=== PATIENT | female | born 1985 | race Two or more races ===

== ENCOUNTER 2020-01-01 02:26 | Emergency (ER) | payer BC ==
[~2020-01-01] VITALS: Ht 167.6 cm; Wt 70.2 kg
--- NOTE | 2020-01-01 02:41 | NUR ---
Pt presents to room reporting low abdominal pain with intermittent vaginal bleeding for 3 days. Pt reports nausea with the pain as well as vomiting once yesterday. Pt describes the pain radiating to her LLQ. Pt denies urinary symptoms. Pt reports a +UPT 3 weeks ago, .
[2020-01-01 03:20] LABS: BASOPHILS # (AUTO) 0.02 x10^3/uL (0-0.1); BASOPHILS % (AUTO) 0 % (0-1); EOSINOPHILS # (AUTO) 0.25 x10^3/uL (0-0.4); EOSINOPHILS % (AUTO) 4 % (1-7); LYMPHOCYTES # (AUTO) 1.43 x10^3/uL (1-3.4); LYMPHOCYTES % (AUTO) 23 % (22-44); MD NO; MEAN CORPUSCULAR HEMOGLOBIN 24.6 pg (27.0-34.8); MEAN CORPUSCULAR HGB CONC 32.7 g/dL (32.4-35.8); MEAN CORPUSCULAR VOLUME 75.1 fL (80-100); MEAN PLATELET VOLUME 7.1 fL (7.4-10.4); MONOCYTES # (AUTO) 0.49 x10^3/uL (0.2-0.8); MONOCYTES % (AUTO) 8 % (2-9); NEUTROPHILS # (AUTO) 3.94 x10^3/uL (1.8-6.8); NEUTROPHILS % (AUTO) 64 % (42-75); PLATELET COUNT 363 x10^3/uL (130-400); RED BLOOD COUNT 4.18 x10^6/uL (3.82-5.3); RED CELL DISTRIBUTION WIDTH 18.3 % (9.6-15.2)
[2020-01-01 03:33] LABS: ALANINE AMINOTRANSFERASE 29 U/L (12-78); ALBUMIN 3.4 g/dL (3.4-5.0); ANION GAP 5 mmol/L (5-15); CALCIUM 8.1 mg/dL (8.5-10.1); CHLORIDE 111 mmol/L (98-107); CREATININE 0.65 mg/dL (0.55-1.02)
[2020-01-01 03:51] LABS: ALKALINE PHOSPHATASE 98 U/L (45-117); BILIRUBIN,TOTAL 0.4 mg/dL (0.2-1.0); TOTAL PROTEIN 7.1 g/dL (6.4-8.2)
[2020-01-01 05:47] VITALS: BP 109/58
== END 2020-01-01 05:50 | disposition home or self-care (01) ==
LOC: ED 03:39
DX: O20.0 Threatened abortion (principal)
CPT/HCPCS: 36415; 76801; 80053; 84702; 85025; 86901; 99284

== ENCOUNTER 2020-01-01 19:06 | Emergency (ER) | payer BC ==
[~2020-01-01] VITALS: Ht 167.6 cm; Wt 69.7 kg
[2020-01-01 19:48] LABS: BASOPHILS # (AUTO) 0.05 x10^3/uL (0-0.1); BASOPHILS % (AUTO) 1 % (0-1); EOSINOPHILS # (AUTO) 0.24 x10^3/uL (0-0.4); EOSINOPHILS % (AUTO) 3 % (1-7); LYMPHOCYTES # (AUTO) 1.59 x10^3/uL (1-3.4); LYMPHOCYTES % (AUTO) 17 % (22-44); MD NO; MEAN CORPUSCULAR HEMOGLOBIN 24.3 pg (27.0-34.8); MEAN CORPUSCULAR HGB CONC 32.3 g/dL (32.4-35.8); MEAN CORPUSCULAR VOLUME 75.2 fL (80-100); MEAN PLATELET VOLUME 7.2 fL (7.4-10.4); MONOCYTES # (AUTO) 0.69 x10^3/uL (0.2-0.8); MONOCYTES % (AUTO) 7 % (2-9); NEUTROPHILS # (AUTO) 6.94 x10^3/uL (1.8-6.8); NEUTROPHILS % (AUTO) 73 % (42-75); PLATELET COUNT 353 x10^3/uL (130-400); RED BLOOD COUNT 4.46 x10^6/uL (3.82-5.3); RED CELL DISTRIBUTION WIDTH 17.8 % (9.6-15.2)
[2020-01-01 19:53] VITALS: BP 130/72
--- NOTE | 2020-01-01 19:54 | NUR ---
FLOAT RN: VS UPDATED, PATIENT CHANGED AND READY FOR PELVIC EXAM. THIS RN IN ROOM DURING EXAM.
[2020-01-01] MEDS ORDERED: HYDROcodone/APAP 5/325 TABLET ONE (20:45)
[2020-01-01] MEDS ORDERED: KETOROLAC 60 MG/2 ML ONE (20:45)
[2020-01-01] MEDS ORDERED: KETOROLAC 30 MG/1 ML IM ONE (21:00)
[2020-01-01] MEDS ORDERED: HYDROcodone/APAP 5/325 TABLET PO ONE (21:00)
== END 2020-01-01 21:16 | disposition home or self-care (01) ==
LOC: ED 21:09
DX: O03.4 Incomplete spontaneous abortion without complication (principal); R10.2 Pelvic and perineal pain
CPT/HCPCS: 36415; 84702; 85025; 96372; 99283; J1885

== ENCOUNTER 2020-10-28 10:49 | Emergency (ER) | payer BC, OTHER ==
[~2020-10-28] VITALS: Ht 167.6 cm; Wt 74.5 kg
--- NOTE | 2020-10-28 11:30 | NUR ---
PIV PLACED, LABS DRAWN AND COLLECTED BY SERVICE DOG TRAINER. IVF RUNNING. PT CONNECTED TO MONITORING. CALL LIGHT IN REACH.
[2020-10-28 11:42] LABS: BASOPHILS % (AUTO) 1 % (0-1); EOSINOPHILS % (AUTO) 0 % (1-7); LYMPHOCYTES % (AUTO) 27 % (22-44); MEAN CORPUSCULAR HEMOGLOBIN 23.1 pg (27.0-34.8); MEAN CORPUSCULAR HGB CONC 32.3 g/dL (32.4-35.8); MEAN PLATELET VOLUME 7.4 fL (7.4-10.4); MONOCYTES % (AUTO) 6 % (2-9); NEUTROPHILS % (AUTO) 67 % (42-75); PLATELET COUNT 292 x10^3/uL (130-400); RED BLOOD COUNT 4.75 x10^6/uL (3.82-5.3); RED CELL DISTRIBUTION WIDTH 16.5 % (9.6-15.2)
[2020-10-28 11:47] LABS: ALANINE AMINOTRANSFERASE 56 U/L (12-78); ALBUMIN 3.7 g/dL (3.4-5.0); ANION GAP 7 mmol/L (5-15); CALCIUM 8.7 mg/dL (8.5-10.1); CHLORIDE 111 mmol/L (98-107); CREATININE 0.72 mg/dL (0.55-1.02)
[2020-10-28 11:49] LABS: ALKALINE PHOSPHATASE 134 U/L (45-117); BILIRUBIN,TOTAL 0.3 mg/dL (0.2-1.0); MD NO; TOTAL PROTEIN 8.1 g/dL (6.4-8.2)
--- NOTE | 2020-10-28 11:53 | NUR ---
EKG COMPLETE IN TRIAGE.
[2020-10-28 11:56] VITALS: BP 113/67
--- NOTE | 2020-10-28 11:57 | NUR ---
ALL RESULTS ARE BACK AT THIS TIME. CHART UP FOR RECHECK.
[2020-10-28] MEDS ORDERED: SODIUM CHLORIDE FLUSH 10ML SYR IVF ONE (12:00)
[2020-10-28] MEDS ORDERED: SODIUM CHLORIDE 0.9% 1,000 ML IV ONE (12:00)
[2020-10-28] MEDS ORDERED: SODIUM CHLORIDE 0.9% 1,000ML IVBOLUS ONE (12:00)
== END 2020-10-28 12:32 | disposition home or self-care (01) ==
LOC: ED 11:31
DX: J15.9 Unspecified bacterial pneumonia (principal); R00.0 Tachycardia, unspecified; Z20.828 Contact with and (suspected) exposure to other viral communicable diseases; M79.10 Myalgia, unspecified site; R51.9 Headache, unspecified
CPT/HCPCS: 71045; 80053; 85025; 93005; 96360; 99285; J7030; 87635; 99284